=== PATIENT | female | born 1960 | race Caucasian/White ===

== ENCOUNTER → 2016-08-20 | Outpatient (CLI) | payer BC ==
--- NOTE | 2016-08-20 17:31 | DIAGNOSTIC IMAGING REPORT ---
[facility] CLINICAL HISTORY: Nephrolithiasis. Right flank pain. COMPARISON STUDY: [facility] September 13, 2015. FINDINGS: A 2 mm calculus within the lower pole of the left kidney is unchanged since prior exam of September 13, 2015. Pelvic calcifications are unchanged and suggest phleboliths. No ureteral calculi are identified. Bowel gas pattern is normal. IMPRESSION: 1. No change in a 2 mm left renal calculus. 2. No ureteral calculi identified. Electronically signed by: Channing Schneider M.D. 08/20/2016 5:29 PM Dictated Date/Time: 08/20/2016 5:27 PM
== END | disposition home or self-care (01) ==
LOC: C.RAD 17:09
PROVIDERS: ATTEND Urology
DX: N20.0 Calculus of kidney (principal); N39.0 Urinary tract infection, site not specified